=== PATIENT | male | born 1985 | race Caucasian/White ===

== ENCOUNTER → 2017-01-04 | Outpatient (CLI) | payer BC ==
--- NOTE | 2017-01-04 12:58 | US ---
EXAM DESCRIPTION: Abdomen,Complete CLINICAL HISTORY: NEOPLASM OF UNCERTAIN BEHAVIOR OF LIVER COMPARISON: None Available. TECHNIQUE: Transabdominal scannin-dimensional and Doppler modes. FINDINGS: The gallbladder contains a 4.3 mm echogenic nodule which does not move with patient change in position. No definite stones. No fluid around the gallbladder. Wall thickness normal. 2.3 mm. Common bile duct caliber 2.9 mm which is within normal limits. No stones in the visualized portion of the duct. Not tender with transducer pressure. The liver demonstrates normal echogenicity; contour of the liver capsule is smooth where seen. Well-defined echogenic subcapsular lesion on the posterior right lobe measuring 2.1 x 2.1 x 1.7 cm. No vascularity. No fluid around the liver. Intrahepatic biliary ducts are non-dilated. Craniocaudal dimension in the mid-clavicular axis is 18.6 cm. Pancreas head, body, and tail normal in size and echogenicity. Pancreatic duct is not dilated. Normal Doppler vascularity in the sandi hepatis. Abdominal aorta diameter proximal 1.8 cm. Mid 1.9 cm. Distal 2.0 cm. IVC visualized; normal caliber. Spleen normal echogenicity; long axis measurement is 9.4 cm. No fluid in the spleno-renal fossa. Right kidney measures 11.8 x 6.0 x 5.3 cm . Normal mid renal cortical thickness. Echogenicity normal with no hydronephrosis, no large calcifications, and no perinephric fluid. Contour smooth. Vascularity normal. Ureter not visualized. Left kidney measures 11.6 x 7.8 x 6.6 cm. Normal mid renal cortical thickness Echogenicity unremarkable with no hydronephrosis, no large calcifications, and no perinephric fluid. Contour smooth. Vascularity normal. Ureter not visualized. IMPRESSION: 1. Approximately 4 mm polyp on the wall the gallbladder. No stones or sludge. No wall thickening or pericholecystic fluid. Nontender. Normal caliber of the common bile duct. 2. Probable 2 cm hemangioma subcapsular right liver. Correlate with clinical findings. Consider three month ultrasound follow-up or MRI scan of the liver without and with gadolinium IV contrast. No ascites. Compare to prior imaging if available. 3. Normal ultrasound of the pancreas and bilateral kidneys. Normal caliber of the abdominal aorta with atherosclerotic changes. Electronically signed by: Uriel Sharma MD 01/04/2017 12:56 PM CDT
== END ==
LOC: US 11:39
PROVIDERS: ATTEND Physician Assistant
DX: D37.6 Neoplasm of uncertain behavior of liver, gallbladder and bile ducts (principal); K82.4 Cholesterolosis of gallbladder

== ENCOUNTER → 2017-02-09 | Outpatient (CLI) | payer BC, OTHER, SELFPAY ==
--- NOTE | 2017-02-11 10:22 | MRI ---
Study: MRI of the Right Knee. Indication: PAIN IN RIGHT KNEE Technique: Multiplanar, multi sequence MRI of the right knee was obtained without intravenous contrast. Comparison: None. Findings: ACL, PCL, and lateral collateral ligament complex intact. MCL is lax and bowed indicating sequela of a remote MCL sprain. No acute tear. Free edge truncation body medial meniscus likely postsurgical given history. Body extruded by 3 mm. Obliquely oriented increased PD signal noted at the posterior horn medial meniscus extending into the body with disruption of the inferior articular surface. This is favored to reflect a primary meniscal tear, however could be postsurgical. Vertically oriented increased PD signal also noted at the peripheral red zone posterior horn and a component of vertical undersurface tearing suspected. No transection. Degenerative signal change anterior root attachment lateral meniscus with a 10 mm intrasubstance cyst. Grade 2/3 chondral thinning throughout the majority of the medial compartment with areas of mild grade 4 chondral loss and subchondral marrow change. Grade 2 chondral thinning throughout the lateral compartment. Insertional quadriceps tendinosis. Patella normally located. Grade 4 chondral fissuring medial patellar facet. 15 mm posterior capsular ganglion immediately posterior to the lateral meniscus. Moderate size knee effusion. No acute fracture. 36 mm ovoid PD hyperintense lesion within the proximal tibial metaphysis with somewhat ill-defined margins. This could reflect a subtle osteonecrosis or possibly an enchondroma. Impression: Prior partial medial meniscectomy with suspected recurrent tearing as above. Degenerative signal and mild cystic change anterior root attachment lateral meniscus. Remote MCL sprain. 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 Moderate size knee effusion. Indeterminate lesion in the proximal tibial metaphysis as above. Further characterization with radiographs recommended. Electronically signed by: Kei Burns MD 02/11/2017 10:20 AM CDT
== END | disposition home or self-care (01) ==
LOC: MRI 13:07
PROVIDERS: ATTEND Physician Assistant
DX: M25.561 Pain in right knee (principal)

== ENCOUNTER → 2019-03-15 | Outpatient (CLI) | payer OTHER ==
--- NOTE | 2019-03-15 15:03 | RAD ---
EXAM DESCRIPTION: Elbow,Right 3 Views CLINICAL HISTORY: 34 years Male, PAIN IN RIGHT ELBOW COMPARISON: None available. FINDINGS: The visualized bones are well-mineralized.No acute fracture or dislocation. The soft tissues appear grossly unremarkable. IMPRESSION: Normal radiographs of the right elbow. Electronically signed by: Danny Manuel MD 03/15/2019 3:02 PM [facility]
== END ==
LOC: RAD 09:56
PROVIDERS: ATTEND Orthopaedic Surgery
DX: M25.521 Pain in right elbow (principal)